=== PATIENT | male | born 1950 | race Caucasian/White ===

== ENCOUNTER 2017-02-06 11:17 | Emergency (ER) | payer MEDICARE ==
[~2017-02-06] VITALS: Ht 182.9 cm; Wt 84.1 kg
[2017-02-06 11:22] VITALS: BP 158/94; PULSE 89; RESP 18; O2SAT 99
--- NOTE | 2017-02-06 13:16 | ED.REPORT ---
HPI-Abd Pain M 40 and Over Date of Service Feb 06, 2017 ED Provider: Marcelo Denson MD A 66 year old male on Warfarin with a history of atrial fibrillation, hypertension and brain tumor removal presents to the ED complaining of urinary retention. The pt has not been able to urinate since early this morning, which is abnormal for him. He is now experiencing associated abdominal pain. The pt has no history of similar symptoms of this severity, though he admits to one episode where he "thought he was urinating but wasn't." The pt denies recent medication changes or NSAID use. Nursing Notes Stated Complaint: ABDOMINAL PAIN Chief Complaint: Male Abdominal Pain Nursing Notes Reviewed: Yes Allergies: Coded Allergies: No Known Allergies (Unverified , 02/06/17) Scheduled Tamsulosin (Flomax) 0.4 Mg Capsule 0.4 MG PO DAILY General Time Seen by MD: 13:15 Chief Complaint Other (Urinary retention) Hx Obtained From: Patient Arrived By: Walk-in Sudden in Onset?: No Onset Occurred: 5 - 8 hours ago Symptom Duration: Since onset Recent Healthcare: No recent doctor visit, No recent hospitalization Similar Sx Previous: No Past Medical History Past Medical History atrial fibrillation hypertension brain tumor Past Surgical History brain tumor removal Smoking History Unknown if Ever Smoker Social History Alcohol Use: "Social" Ambulatory Status Independent Review of Systems Review of Systems Note: urinary retention Respiratory: Denies: Non-productive cough, Shortness of breath Cardiovascular: Denies: Chest pain GI: Reports: Abdominal pain, Denies: Vomiting Musculoskeletal: Denies: Back pain, Neck pain Complete sys rev & neg: except as marked. Skin: Denies Rash Physical Exam Initial Vital Signs Vital Signs (First) Date Time Temp Pulse Resp B/P Pulse Ox O2 Delivery O2 Flow Rate FiO2 02/06/17 11:22 36.8 89 18 158/94 99 Initial VS: Reviewed General/Constitutional: Awake, Alert Castillo catheter in place Respiratory / Chest: Atraumatic, Breath sounds NL, Breath sounds = bilat, No respiratory distress Cardiovascular: Heart rate NL, Regular rhythm, Heart sounds NL Abdomen: Atraumatic, Soft, Non-tender Back: Atraumatic, Full range of motion Head / Eyes: Atraumatic, Normocephalic, PERRL, EOMI ENT: Atraumatic, Mucous membranes moist Skin: Atraumatic, Color NL, No rash, Warm, Dry Neurologic: Oriented X3, Speech NL, No motor deficits, No sensory deficits Neck: Atraumatic, Supple, Full range of motion Upper Extremity / MS: Atraumatic, Full range of motion Lower Extremity / Pelvis / MS: Atraumatic, Full range of motion Psychiatric: Affect NL, Mood NL Interpretation & Diagnostics Lab Results Interpretation Test 02/06/17 12:20 Urine Color Straw (YELLOW) Urine Appearance Hazy (CLEAR,HAZY) Urine pH 6.0 (5.0-8.0) Urine Specific [place] 1.015 (1.003-1.035) Urine Protein Negativemg/dL (NEG,TRACE) Urine Glucose (UA) Negativemg/dL (NEGATIVE) Urine Ketones Negativemg/dL (NEGATIVE) Urine Occult Blood Large (NEGATIVE) Urine Nitrite Negative (NEGATIVE) Urine Bilirubin Negative (NEGATIVE) Urine Urobilinogen Normalmg/dL (NORMAL) Urine Leukocyte Esterase Negative (NEGATIVE) Urine RBC >50/hpf (0-2) Urine WBC 0-5/hpf (0-5) Urine Epithelial Cells Occasional/hpf (NONE-MOD) Urine Crystals None seen (NONE SEEN) Urine Bacteria None/hpf (NONE-FEW) Urine Hyaline Casts None/lpf (NONE) Urine Granular Casts None seen (NONE SEEN) Urine Waxy Casts None seen (NONE SEEN) Urine Red Blood Cell Casts None seen (NONE SEEN) Urine White Blood Cell Casts None seen (NONE SEEN) Urine Mucus Present (None Seen) Urine Trichomonas None seen (NONE SEEN) Urine Yeast None (NONE SEEN) Urinalysis Comment None Urine Culture Reflexed Not indicated Re-Eval/Medical Decision Med Decision/Clinical Course 66-year-old male with urinary retention. Castillo placed with 1 L out. Patient felt much better. Urine negative for infection. Discussed with urology recommends follow-up with urology in 7 days for voiding trial Castillo removal. Return precautions given. Time of Eval: 13:15 Patient Status: Condition improved Re-Evaluation/Progress Note: Pt informed of the diagnosis and plan for discharge during the initial interview. The pt understands and agrees with the plan. All questions are addressed at this time. Consultation : Referral / Consult Name: Chloé Henriquez MD Consulted With: Urology Call Returned at: 13:35 School Clerk: Agrees with eval, Agrees with plan Note: Consulted with Dr. Henriquez, urology, regarding pt's case. Dr. Henriquez recommends urology follow up in one week. Counseled Regarding: Diagnosis, Need for follow-up, When/why to return to ED Discharge & Departure Primary Impression: Urinary retention Disposition: Home Vital Signs - All Vital Signs Date Time Temp Pulse Resp B/P Pulse Ox O2 Delivery O2 Flow Rate FiO2 02/06/17 14:50 36.8 90 20 132/90 99 02/06/17 11:22 36.8 89 18 158/94 99 )( All Prior VS Reviewed: Yes Condition: Stable Patient Instructions: Urinary Retention in Men (ED) Additional Instructions: Thank you for entrusting us with your care. Your evaluation was reassuring. Follow up with a urologist in your area in one week. Call your primary care physician to arrange this referral. Keep the Castillo catheter in place until seen in follow up. Take Flomax as directed. Call your primary care physician to arrange a follow up appointment in the next several days. Return to the emergency department if you develop any new or worsening symptoms such as issues voiding with the catheter, abdominal pain, fever, nausea or vomiting. Scribe Attestation Portions of this note were transcribed by Raza Jansen. I, Dr. Denson personally performed the history, physical exam and medical decision-making; I reviewed and confirmed the accuracy of the information in the transcribed note. Marcelo Denson MD Feb 06, 2017 13:16 RAZA JANSEN Feb 06, 2017 13:29
[2017-02-06] MEDS ORDERED: TAMS0.4C98 PO (13:36)
[2017-02-06 13:47] LABS: APPEARANCE,URINE HAZY (CLEAR,HAZY); COLOR,URINE STRAW (YELLOW); OCCULT BLOOD,URINE LARGE (NEGATIVE); UROBILINOGEN,URINE NORMAL (NORMAL)
[2017-02-06 14:50] VITALS: BP 132/90; PULSE 90; RESP 20; O2SAT 99
== END 2017-02-06 14:51 | disposition home or self-care (01) ==
LOC: SED 11:17
DX: R33.9 Retention of urine, unspecified (principal); I10 Essential (primary) hypertension; I48.91 Unspecified atrial fibrillation; Z79.01 Long term (current) use of anticoagulants